=== PATIENT | male | born 1940 | race Caucasian/White ===

== ENCOUNTER → 2019-01-07 | Day surgery (SDC) | payer MEDICARE ==
[2019-01-03 13:01] LABS: BASOPHILS # (AUTO) 0.1 (0.0-0.1); BASOPHILS % 0.8 % (0.0-1.0); HEMATOCRIT 45.7 % (38.2-49.6); HEMOGLOBIN 15.1 g/dL (14.0-18.0); LYMPHOCYTES # (AUTO) 1.6 (1.0-3.2); LYMPHOCYTES % 25.8 % (18.0-39.1); MEAN CORPUSCULAR HEMOGLOBIN 30.5 pg (28-32); MEAN CORPUSCULAR VOLUME 92.3 fL (81-99); MONOCYTES # (AUTO) 0.5 (0.2-0.8); MONOCYTES % 8.4 % (4.4-11.3); NEUTROPHILS # (AUTO) 4.1 (2.1-6.9); NEUTROPHILS % 64.8 % (38.7-80.0); PLATELET COUNT 215 x10e3/uL (140-360); RED BLOOD COUNT 4.95 x10e6/uL (4.3-5.7)
[~2019-01-07] MED LIST: DIAZEPAM5 MG PO; DICYCLOMINE HCL20 MG PO; FLUTICASONE; HYOSCYAMINE SULFATE 0.5 MG/ML INJ ONE; LISINOPRIL10 MG PO; LOVASTATIN40 MG PO; MIDAZOLAM HCL 2 MG/2 ML VIAL ONE; OMEPRAZOLE40 MG PO; PROBIOTIC & AC1 EACH PO; PROPOFOL IV EMULSION 10 MG/ML 50 ML VIAL ONE; PROTOZONE PO; TUMERIC PO; VITAMIN B-121000 MCG PO; VITAMIN D3400 UNI1 PO
--- OUTSIDE RECORDS SUMMARY | 2019-01-07 09:37 | XMS REPORT | Clinical Summary ---
Author Author [facility] Organization [facility] Address Unknown Phone Unavailable Care Team Providers Care Paster Operator Name Role Phone Rk Milton MD PCP Allergies Comments Active Allergy Reactions Severity Noted Date Codeine GI 04/05/2018 Intolerance Medications End Date Status Medication Sig Dispensed Refills Start Date Active tamsulosin (FLOMAX) 0.4 Take 0.4 mg 0 mg capsule,extended by mouth release 24hr daily. Active dicyclomine (BENTYL) 20 Take 20 mg by 0 mg tablet mouth 4 (four) times a day. Active omeprazole (PriLOSEC) 40 Take 40 mg by 0 MG capsule mouth daily. Active lisinopril Take 20 mg by 0 (PRINIVIL,ZESTRIL) 20 mg mouth daily. tablet Active lovastatin (MEVACOR) 40 Take 40 mg by 0 MG tablet mouth nightly. Active diazePAM (VALIUM) 10 MG Take 10 mg by 0 tablet mouth every 6 (six) hours as needed for anxiety. Active fluticasone (FLONASE) 50 2 sprays by 0 mcg/actuation nasal spray Each Nare route daily. Active epinastine 0.05 % INT 1 GTT 12 ophthalmic solution INTO BOTH 8 EYES BID Active ciprofloxacin (CIPRO) 500 TK 1 T PO Q 3 MG tablet 12 H FOR 10 8 DAYS Active metroNIDAZOLE (FLAGYL) TK 1 T PO TID 3 500 MG tablet FOR 10 DAYS 8 04/30/2018 acetaminophen-codeine Take 1 tablet 20 tablet 0 (TYLENOL WITH CODEINE #3) by mouth 8 300-30 mg per tablet every 4 (four) hours as needed for moderate pain for up to 5 days. Active Problems No known active problems Encounters Care Team Description Date Type Specialty Adolph Bruce MD 05/21/2018 Telephone General Surgery Adolph Bruce MD Bilateral inguinal hernia without obstruction or gangrene, recurrence not specified (Primary Dx) 05/08/2018 Office Visit General Surgery Seamus Thompson MD 04/25/2018 Anesthesia General Surgery Event Adolph Bruce MD LAPAROSCOPIC ROBOTIC ASSISTED INGUINAL HERNIA REPAIR WITH MESH, POSSIBLE OPEN-BILATERAL 04/25/2018 Surgery General Surgery Adolph Bruce MD 04/25/2018 Hospital General Surgery Encounter Adolph Bruce MD Preoperative testing (Primary Dx) 04/19/2018 Pre-Admit Pre-Admission Testing Testing Appointment Adolph Bruce MD Bilateral inguinal hernia without obstruction or gangrene, recurrence not specified (Primary Dx) 04/05/2018 Office Visit General Surgery Rk Milton MD Hernia of scrotum 04/02/2018 Hospital Radiology Encounter Rk Milton MD Hernia of scrotum (Primary Dx) 04/01/2018 Transcribe Access Orders after 01/06/2018 Family History Medical History Relation Name Comments Early Father Diabetes Mother Relation Name Status Comments Father Mother Social History Date Tobacco Use Types Packs/Day Years Used Quit: 1989 Former Smoker Cigarettes 1 30 Smokeless Tobacco: Never Used Alcohol Use Drinks/Week oz/Week Comments No Sex Assigned at Date Recorded Not on file Industry Job Start Date Occupation Not on file Not on file Not on file Travel End Travel History Travel Start No recent travel history available. Last Filed Vital Signs Time Taken Vital Sign Reading 05/08/2018 1:03 PM CDT Blood Pressure 134/76 05/08/2018 1:03 PM CDT Pulse 68 05/08/2018 1:03 PM CDT Temperature 37.2 C (98.9 F) 04/25/2018 1:32 PM CDT Respiratory Rate 16 04/25/2018 1:32 PM CDT Oxygen Saturation 92% - Inhaled Oxygen - Concentration 05/08/2018 1:03 PM CDT Weight 66.2 kg (146 lb) 05/08/2018 1:03 PM CDT Height 175.3 cm (5' 9") 05/08/2018 1:03 PM CDT Body Mass Index 21.56 Plan of Treatment Health Maintenance Due Date Last Done Comments SHINGLES VACCINES (1 of 1991 2) PNEUMOCOCCAL 2006 POLYSACCHARIDE VACCINE AGE 65 AND OVER PNEUMOCOCCAL-13 2006 INFLUENZA VACCINE 06/19/2018 Implants Device Identifier Shelf Expiration Date Model / Serial / Lot Implanted Type Area Manufactur er 02/16/2021 [id number] / / [id number] Mesh Surgcl Progrip [id number] [employer] Right: Inguinal COVIDIEN Rt (Right) - [id number] Mesh or Implanted: Qty: 1 on 04/25/2018 by Adolph Eli MD [employer] 09/18/2020 [id number] / / [id number] Mesh Surgcl Progrip [id number] [employer] Left: Inguinal COVIDIEN Lt (Left) - [id number] Mesh or Implanted: Qty: 1 on 04/25/2018 by Adolph Eli MD [employer] Procedures Comments Procedure Name Priority Date/Time Associated Diagnosis ME AN ELECTIVE Routine 04/25/2018 ENDOTRACHEAL AIRWAY 10:54 AM CDT Procedure Note - Danish Tovar, HELMINTHOLOGIST - 04/25/2018 10:54 AM CDT Airway Date/Time: 04/25/2018 10:36 AM Performed by: DANISH TOVAR Authorized by: DANISH TOVAR Location: OR Urgency: Elective Anesthesio logist: LIBERTAD AIKEN Resident/C RNA/AA: DANISH TOVAR Preoxygena marcial with 100% O2: Yes C-spine Precaution s Maintained Throughout : Yes Mask Ventilatio n: Easy mask Final Airway Type: Endotrache al airway Final Endotrache al Airway: ETT Cuffed: Yes Technique Used: Direct laryngosco py Insertion Site: Oral Blade Type: Crissy Laryngosco pe Blade/Vide olaryngosc ope Blade Size: 4 ETT Size (mm): 7.5 Cuff at minimum occlusion pressure: Yes Measured from: Lips ETT to Lips (cm): 23 Placement Verified by: CO2 detection, direct visualizat ion and equal breath sounds Laryngosco pic view: Grade I - full view of glottis Rapid Sequence Induction (RSI): No Modified RSI: No Number of Attempts at Approach: 1 ZZESTIMATED GFR Routine 04/19/2018 12:10 PM CDT PROTHROMBIN TIME WITH INR Routine 04/19/2018 Preoperative testing 12:10 PM CDT PARTIAL THROMBOPLASTIN Routine 04/19/2018 Preoperative testing TIME (PTT) 12:10 PM CDT BASIC METABOLIC PANEL Routine 04/19/2018 Preoperative testing 12:10 PM CDT HC COMPLETE BLD COUNT Routine 04/19/2018 Preoperative testing W/AUTO DIFF 12:10 PM CDT ECG PRE/POST OP Routine 04/19/2018 Preoperative testing 12:[address] PELVIS WO CONTRAST Routine 04/02/2018 Hernia of scrotum 10:59 AM CDT after 01/06/2018 Results * Estimated GFR (04/19/2018 12:10 PM CDT) GFR Non Af Amer 72 mL/min/1.73 m2 [facility] [place] [employer] MEDICINE GFR Af Amer 88 mL/min/1.73 m2 [facility] [place] Comment: PATHOLOGY AND Chronic kidney disease: <60 GENOMIC MEDICINE mL/min/1.73m2 Kidney failure: <15 mL/min/1.73m2 The estimated GFR is calculated from the IDMS-traceable Modification of Diet in Renal Disease Equation. The accuracy of the calculation is poor when the creatinine is normal. Calculated values >90 mL/min/1.73m2 are not reported. This equation has not been validated in children (<18 years), women, the elderly (>70 years), or ethnic groups other than Caucasians and Americans. Specimen Plasma specimen Performing Organization Address City/State/Zipcode Phone Number [facility] [place] [address] [place] [address] PATHOLOGY AND [employer] MEDICINE * Partial thromboplastin time, activated (04/19/2018 12:10 PM CDT) PTT 31.8 23.0 - 36.0 sec [facility] [place] Comment: PATHOLOGY AND PTT therapeutic range for [facility] unfractionated heparin is 61.0-112.0 seconds which corresponds to Anti-Xa 0.3-0.7 U/ml. Note:Change in Panic Value The PTT Panic Value is changing from 110 sec. to 100 sec. due to new instrumentation and reagents. Correlation studies have been performed to validate this result. Specimen Blood Performing Organization Address City/[facility]/Zipcode Phone Number [place] [address] [place] [address] PATHOLOGY AND English TV [facility] * Prothrombin time with INR (04/19/2018 12:10 PM CDT) Prothrombin time 12.5 12.0 - 15.0 sec [facility] [place] AND GENOMIC MEDICINE INR 0.92 0.92 - 1.12 [facility] [place] Comment: PATHOLOGY AND For patients on anticoagulant GENOMIC MEDICINE therapy, reference ranges below: Indication: INR Value Treatment of Venous Thrombosis, 2.0-3.0 pulmonary emboli, or prophylaxis of a venous thrombosis, or systemic emboli. High dose, high risk patients 3.0-4.5 with mechanical valves. NOTE:INR values over 3.0 are sometimes associated with gastrointestinal hemorrhage, especially values over 4.0. Specimen Blood Performing Organization Address City/[facility] Phone Number [address] [place] [address] PATHOLOGY AND [employer] MEDICINE * CBC with platelet and differential (04/19/2018 12:10 PM CDT) WBC 5.6 4.2 - 11.0 k/uL [facility] [place] AND GENOMIC MEDICINE RBC 4.80 4.04 - 5.86 m/uL [facility] [place] AND GENOMIC MEDICINE HGB 14.9 13.0 - 17.3 g/dL [facility] [place] AND GENOMIC MEDICINE HCT 45.8 (H) 34.0 - 45.0 % [facility] [place] AND GENOMIC MEDICINE MCV 95.4 80.0 - 98.0 fL [facility] [place]OLOGY AND GENOMIC MEDICINE MCH 31.0 27.0 - 34.0 pg [facility] [place]OLOGY AND GENOMIC MEDICINE MCHC 32.5 31.5 - 36.5 g/dL [facility] [place]OLOGY AND GENOMIC MEDICINE RDW - SD 46.7 37.0 - 51.0 fL [facility] [place] AND GENOMIC MEDICINE MPV 9.9 7.4 - 10.4 fL [facility] [place] AND GENOMIC MEDICINE Platelet count 224 150 - 400 k/uL [facility] [place]Y AND GENOMIC MEDICINE Nucleated RBC 0.00 /100 WBC [facility] [place]Y AND GENOMIC MEDICINE Neutrophils 67.6 (H) 36.0 - 66.0 % [facility] [place]Y AND GENOMIC MEDICINE Lymphocytes 26.5 24.0 - 44.0 % [facility] [place]Y AND GENOMIC MEDICINE Monocytes 5.3 0.0 - 6.0 % [facility] [place]Y AND GENOMIC MEDICINE Eosinophils 0.0 0.0 - 6.0 % [facility] [place]Y AND GENOMIC MEDICINE Basophils 0.4 0.0 - 1.2 % [facility] [place]OLOGY AND GENOMIC MEDICINE Immature granulocytes 0.2 0.0 - 1.0 % [facility] [place] AND GENOMIC MEDICINE Specimen Blood Performing Organization Address City/[facility] [place] [address] PATHOLOGY AND GENOMIC MEDICINE * Basic metabolic panel (04/19/2018 12:10 PM CDT) Sodium 143 135 - 150 mEq/L [facility] [place] AND GENOMIC MEDICINE Potassium 3.8 3.5 - 5.0 mEq/L [facility] [place]OLOGY AND GENOMIC MEDICINE Chloride 105 100 - 109 mEq/L [facility] [place]OLOGY AND GENOMIC MEDICINE CO2 30 24 - 32 mmol/L [facility] [place]OLOGY AND GENOMIC MEDICINE Anion gap 8@ANIO 7 - 15 mEq/L [facility] [place]OLOGY AND GENOMIC MEDICINE BUN 8 7 - 18 mg/dL [facility] [place]OLOGY AND GENOMIC MEDICINE Creatinine 1.0 0.8 - 1.5 mg/dL [facility] [place]Y AND GENOMIC MEDICINE Glucose 128 (H) 65 - 100 mg/dL [facility] [place]OLOGY AND GENOMIC MEDICINE Calcium 9.2 8.6 - 10.7 mg/dL [facility] [place] AND GENOMIC MEDICINE Specimen Plasma specimen Performing Organization Address City/[facility] [place] [address] PATHOLOGY AND GENOMIC MEDICINE * ECG Pre/Post Op (04/19/2018 12:05 PM CDT) Ventricular rate 92 [facility] Atrial rate 92 [facility] ME interval 160 [facility] QRSD interval 106 [facility] QT interval 368 [facility] QTC interval 455 [facility] P axis 1 50 [facility] QRS axis 1 -45 [facility] T wave axis 39 [facility] EKG impression Normal sinus rhythm-Left axis [facility] deviation-Right bundle branch block-Inferior infarct , age undetermined-Abnormal ECG-No previous ECGs available- Performing Organization Address City/State/Zipcode Phone Number [facility] M[facility] [address] [place] [address] * CT Pelvis Wo Contrast (04/02/2018 10:59 AM CDT) Narrative Performed At EXAMINATION:CT PELVIS WO CONTRAST [facility] CLINICAL HISTORY:K40.90 Unilateral inguinal herniawithout obstruction or gangrenenot specified as recurrent, K40.90 TECHNIQUE:Multiple axial images of the pelvis were obtained without intravenous contrast. The lack of intravenous contrast reduces sensitivity of detecting solid organ disease. Sagittal and coronal computerized reformatted images were also obtained. COMPARISON:None. FINDINGS: The bony pelvis is osteopenic. Severe hypertrophic degenerative changes involving the facet joints are present in the lumbar spine. There is also mild diffuse osteopenia. There is pronounced diverticulosis involving the descending and sigmoid colon with some thickening of the wall of the descending and sigmoid colon and possibly the ascending colon and transverse colon suggesting colitis. No changes to suggest diverticulitis are definitely noted although some stranding around the rectosigmoid proximally just below the junction with the descending colon is noted. No abscess or perforation is noted. There is a moderate right inguinal hernia with bowel extending into defect. There is no evidence of incarceration. IMPRESSION: 1. Changes suggest colitis involving the transverse descending and rectosigmoid colon correlation with clinical findings is needed. 2. Right inguinal hernia with bowel extending into the defect no evidence of incarceration. [id number] Procedure Note Interface, Radiology Results Incoming - 04/02/2018 2:37 PM CDT EXAMINATION: CT PELVIS WO CONTRAST CLINICAL HISTORY: K40.90 Unilateral inguinal hernia without obstruction or gangrene not specified as recurrent, K40.90 TECHNIQUE:Multiple axial images of the pelvis were obtained without intravenous contrast. The lack of intravenous contrast reduces sensitivity of detecting solid organ disease. Sagittal and coronal computerized reformatted images were also obtained. COMPARISON: None. FINDINGS: The bony pelvis is osteopenic. Severe hypertrophic degenerative changes involving the facet joints are present in the lumbar spine. There is also mild diffuse osteopenia. There is pronounced diverticulosis involving the descending and sigmoid colon with some thickening of the wall of the descending and sigmoid colon and possibly the ascending colon and transverse colon suggesting colitis. No changes to suggest diverticulitis are definitely noted although some stranding around the rectosigmoid proximally just below the junction with the descending colon is noted. No abscess or perforation is noted. There is a moderate right inguinal hernia with bowel extending into defect. There is no evidence of incarceration. IMPRESSION: 1. Changes suggest colitis involving the transverse descending and rectosigmoid colon correlation with clinical findings is needed. 2. Right inguinal hernia with bowel extending into the defect no evidence of incarceration. [id number] Performing Organization Address City/State/Zipcode Phone Number [facility] [address] [place] [address] after 01/06/2018 Insurance Payer Benefit Subscriber ID Type Phone Address Plan / Group [employer] C[employer] xxxxxxxxxxx O [employer] NG O MCR ADV Advance Directives Patient has advance care planning documents on file. For more information, jenn whalen contact: Ralph Anthony [address] [place] [address]
[2019-01-07 15:02] VITALS: BP 136/80
== END | disposition home or self-care (01) ==
LOC: EDSEX 09:30 → OR 09:35
PROVIDERS: ATTEND Internal Medicine Gastroenterology
DX: Z12.11 Encounter for screening for malignant neoplasm of colon (principal); D12.4 Benign neoplasm of descending colon; K57.30 Diverticulosis of large intestine without perforation or abscess without bleeding; K58.9 Irritable bowel syndrome, unspecified; K22.70 Barrett's esophagus without dysplasia; K21.9 Gastro-esophageal reflux disease without esophagitis; K83.8 Other specified diseases of biliary tract; R63.4 Abnormal weight loss; R07.9 Chest pain, unspecified; N20.0 Calculus of kidney; E27.9 Disorder of adrenal gland, unspecified; I10 Essential (primary) hypertension; E78.5 Hyperlipidemia, unspecified; M46.90 Unspecified inflammatory spondylopathy, site unspecified; I45.10 Unspecified right bundle-branch block; F41.9 Anxiety disorder, unspecified; Z88.6 Allergy status to analgesic agent; Z01.810 Encounter for preprocedural cardiovascular examination; Z01.812 Encounter for preprocedural laboratory examination; Z85.46 Personal history of malignant neoplasm of prostate; Z87.891 Personal history of nicotine dependence
CPT/HCPCS: 36415; 45384; 85025; 93005; J1980; J2250; J2704; 45378